=== PATIENT | male | born 1960 | race Asian ===

== ENCOUNTER 2016-12-18 13:30 | Inpatient (IN) | payer OTHER ==
[~2016-12-18] VITALS: Ht 175.3 cm; Wt 85.0 kg
[2016-12-18 13:24] VITALS: BP 127/74; TEMP 98.2
[~2016-12-18 13:30] MED LIST: ACTOS45 MG PO; ALUMSUS6 PO; APAP325 MG PO; BENADRYL 50M50 MG/ML IJ; BENADRYL 50M50 MG/ML IM; BENZTROPINE2 MG PO; BUPROPN HCL150 MG PO; CLON0.1T16 PO; COZAAR100 MG PO; DIVA500T2 PO; DOCU SOFT100 MG PO; DOCU100C10 PO; ESCI10TA PO; HALO50IN4 IM; HALO5INJ3 IM; HALOPERIDOL20 MG PO; LORA2INJ21 IM; LORA2INJ21 INJ; LOSA50TA PO; MAGN400T4 PO; MAGNSUS68 PO; METAMUCIL0.52 GM PO; OMEPRAZOLE20 M1 PO; OXCARBAZEPIN300 MG PO; PANT40TA PO; PIOG30TA PO; POTASSIUM CHLO20 ME2 PO; POTASSIUM CHLO20 MEQ PO; QUETIAPINE400 MG PO; SEROQUEL200 MG PO; SEROQUEL400 MG PO; TRAZ50TA36 PO; TRILEPTAL300 MG PO; ZIPR20IN IM; [UNRECOGNIZED DRUG - OTHER] PO
[2016-12-18 14:20] VITALS: BP 119/65
[2016-12-18 14:45] LABS: PLATELET COUNT 335 K/uL (142-355)
[2016-12-18 15:10] LABS: POTASSIUM 4.4 mmol/L (3.6-5.2)
[2016-12-18 15:20] VITALS: BP 98/64
[2016-12-18 16:20] VITALS: BP 103/64
[2016-12-18 17:20] VITALS: BP 108/58
[2016-12-18 18:02] VITALS: BP 127/74; TEMP 98.4; Ht 175.3 cm; Wt 85.0 kg
[2016-12-19 08:52] LABS: PLATELET COUNT 314 K/uL (142-355)
[2016-12-19 09:37] LABS: POTASSIUM 4.5 mmol/L (3.6-5.2); SODIUM 132 mmol/L (136-145)
[2016-12-19 10:00] VITALS: BP 157/93; TEMP 98.3
[2016-12-19 14:44] VITALS: BP 152/87; TEMP 98
== END 2016-12-19 15:30 | disposition other institution (70) | DRG 948 ==
LOC: ICU 13:30
PROVIDERS: ADMIT Emergency Medicine
DX: R41.82 Altered mental status, unspecified (principal); D53.9 Nutritional anemia, unspecified; J44.9 Chronic obstructive pulmonary disease, unspecified; K21.9 Gastro-esophageal reflux disease without esophagitis; F78 Other intellectual disabilities; F20.89 Other schizophrenia; E11.9 Type 2 diabetes mellitus without complications
CPT/HCPCS: 80053; 80164; 82550; 83036; 83735; 84484; 85027; 93005; J3490

== ENCOUNTER 2018-10-19 17:25 | Emergency (ER) | payer OTHER ==
[~2018-10-19] VITALS: Ht 175.3 cm; Wt 81.6 kg
[2018-10-19 17:25] VITALS: BP 129/70; TEMP 97.7
[2018-10-19 17:59] LABS: PLATELET COUNT 380 K/uL (142-355)
[2018-10-19 18:03] LABS: POTASSIUM 3.5 mmol/L (3.6-5.2); SODIUM 139 mmol/L (136-145)
[2018-10-19] MEDS ORDERED: HALO50IN4 IM (23:28)
[2018-10-19] MEDS ORDERED: DOCU SOFT100 MG PO (23:33)
[2018-10-19] MEDS ORDERED: FINASTERIDE5 MG PO (23:35)
[2018-10-19] MEDS ORDERED: GABA300C2 PO (23:37)
[2018-10-19] MEDS ORDERED: LOSA50TA PO (23:38)
[2018-10-19] MEDS ORDERED: OMEPRAZOLE DR20 MG PO (23:39)
[2018-10-19] MEDS ORDERED: PIOGLITAZONE PO (23:43)
[2018-10-19] MEDS ORDERED: POTASSIUM CL ER PO (23:46)
[2018-10-19] MEDS ORDERED: TORSEMIDE20 MG PO (23:48)
[2018-10-19] MEDS ORDERED: ZIPR80CA PO (23:51)
[2018-10-19] MEDS ORDERED: BUSPIRONE10 MG PO (23:52)
[2018-10-19] MEDS ORDERED: CLON0.1T16 PO (23:53)
[2018-10-19] MEDS ORDERED: MAG OXIDE400 MG PO (23:55)
[2018-10-19] MEDS ORDERED: OXCARBAZEPIN600 MG PO (23:56)
[2018-10-19] MEDS ORDERED: GEODON60 MG PO (23:58)
[2018-10-19] MEDS ORDERED: REMERON SOLTAB15 MG PO (23:59)
[2018-10-20] MEDS ORDERED: MIRALAX3350 N1 PO
[2018-10-20] MEDS ORDERED: PROVERA10 MG PO (00:11)
[2018-10-20] MEDS ORDERED: BUSPIRONE10 MG PO (00:47)
== END 2018-10-19 18:20 | disposition home or self-care (01) ==
LOC: ED 17:25
PROVIDERS: Emergency Medicine
DX: Z00.8 Encounter for other general examination (principal); F20.89 Other schizophrenia; D64.89 Other specified anemias; F91.8 Other conduct disorders
CPT/HCPCS: 36415; 80053; 82550; 84484; 85027; 93005; 99285